=== PATIENT | male | born 1955 | race Caucasian/White ===

== ENCOUNTER 2018-11-03 22:08 | Inpatient (IN) | payer MEDICARE ==
[2018-11-03] MEDS ORDERED: Haloperidol Lactate 5 mg/mL 1mL Vial IM STA (22:11)
--- NOTE | 2018-11-03 22:17 | ED Physician Chart ---
ED Chief Complaint/HPI - Patient Information Date Seen:: 11/03/18 Time Seen:: 22:00 Chief Complaint:: Agitation History of Present Illness:: onset x 3 days of agitation, hostile and aggressive behavior; no report of trauma, H/As, SIs, S/T, neck pain, cough, C/P, SOB, Abd. Pain, A/N/V/D/C, fever , chills, or urinary s/s Allergies:: Allergies Allergy/AdvReac Type Severity Reaction Status Date / Time amoxicillin Allergy Verified 11/03/18 22:10 Historian:: Patient, EMS Review:: Nurse's Note Reviewed, Old Chart Reviewed, EMS run form Reviewed ED Review of Systems - Review of Systems General/Constitutional: No fever, No chills, No weight loss, No weakness, No diaphoresis, No edema, No loss of appetite Skin: No skin lesions, No rash, No bruising Head: No headache, No light-headedness Eyes: No loss of vision, No pain, No diplopia ENT: No earache, No nasal drainage, No sore throat, No tinnitus Neck: No neck pain, No swelling, No thyromegaly, No stiffness, No mass noted Cardio Vascular: No chest pain, No palpitations, No PND, No orthopnea, No edema Pulmonary: No SOB, No cough, No sputum, No wheezing GI: No nausea, No vomiting, No diarrhea, No pain, No melena, No hematochezia, No constipation, No hematemesis G/U: No dysuria, No frequency, No hematuria, No nacturia Musculoskeletal: No bone or joint pain, No back pain, No muscle pain Endocrine: No polyuria, No polydipsia Psychiatric: Prior psych history, Depression, Anxiety, No suicidal ideation, No homicidal ideation, No auditory hallucination, No visual hallucination Hematopoietic: No bruising, No lymphadenopathy Allergic/Immuno: No urticaria, No angioedema Neurological: No syncope, No focal symptoms, No weakness, No paresthesia, No headache, No seizure, No dizziness, Confusion, No vertigo ED Past Medical History - Past Medical History Obtainable: Yes Past Medical History: HTN, Dyslipidemia, PUD/GERD, Dementia Family History: HTN Social History: Non Smoker, No Alcohol, No Drug Use, Single, Care Facility Surgical History: None Psychiatricy History: Depression, Bipolar, Dementia Medication: Reviewed Family Medical History - Family Member Mother History Unknown: Yes ED Physical Exam - Physical Examination General/Constitutional: Awake, Well-developed, well-nourished, Alert, No distress, GCS 15, Non-toxic appearing, Ambulatory Head: Atraumatic Eyes: Lids, conjuctiva normal, PERRL, EOMI Skin: Nl inspection, No rash, No skin lesions, No ecchymosis, Well hydrated, No lymphadenopathy ENMT: External ears, nose nl, TM canals nl, Nasal exam nl, Lips, teeth, gums nl , Oropharynx nl, Tonsils nl Neck: Nontender, Full ROM w/o pain, No JVD, No nuchal rigidity, No bruit, No mass, No stridor Respiratory: Nl effort/Exclusion, Clear to Auscultation, No Wheeze/Rhonchi/Rales Cardio Vascular: RRR, No murmur, gallop, rubs, NL S1 S2, Carotid/Femoral/Distal pulses equal bilaterally GI: No tenderness/rebounding/guarding, No organomegaly, No hernia, Normal BS's, Nondistended, No mass/bruits, No McBurney tenderness Other GI comments:: no pulsatile masses : No CVA tenderness Extremities: No tenderness or effusion, Full ROM, normal strength in all extremities, No edema, Normal digits & nails Neuro/Psych: Alert/oriented, DTR's symmetric, Normal sensory exam, Normal motor strength, Judgement/insight normal, Mood normal, Normal gait, No focal deficits Other Neuro/Psych comments:: + Psychomotor Agitation; no SIs; Mood/Affect: Labile Misc: Normal back, No paraspinal tenderness ED Labs/Radiology/EKG Results - Lab Results Comments:: Reviewed - EKG Interpretations Comments:: pt refused EKG ED Septic Shock - . Is Septic Shock (SBP<90, OR Lactate>4 mmol\L) present?: No ED Reassessment (Disposition) - Reassessment Reassessment Condition:: Improved - Diagnosis Diagnosis:: Agitation; Medical Clearance; Dementia; Psychosis; Bipolar Disorder - Aftercare/Follow up Instructions Aftercare/Follow-Up Instructions:: Counseled pt regarding lab results/diagnosis & need follow up, Counseled pt & family regarding lab results/diagnosis & need follow up - Patient Disposition Discharge/Transfer:: Acute Care w/in this hosp Admitted to:: [facility] Condition at Disposition:: Stable, Improved
[2018-11-03 22:48] LABS: % BASOPHILS 0.2 % (0.0-2.0); % EOSINOPHILS 0.2 % (0.0-5.0); % LYMPHOCYTES 11.7 % (20.0-50.0); % MONOCYTES 5.2 % (2.0-10.0); % NEUTROPHILS 82.7 % (40.0-80.0); HEMATOCRIT 40.7 % (41.0-60); HEMOGLOBIN 13.3 gm/dL (12-16); LYMPHOCYTE ABSOLUTE 1.2 Th/cmm (1.5-3.0); MEAN CELL VOLUME 100.9 fl (80-99); MEAN CORPUSCULAR HEMOGLOBIN 32.9 pg (26.0-30.0); MEAN CORPUSCULAR HGB CONC 32.6 pg (28.0-36.0); MEAN PLATELET VOLUME 7.6 fl; MONOCYTE ABSOLUTE 0.5 Th/cmm (0.3-1.0); NEUTROPHILE ABSOLUTE 8.6 Th/cmm (1.8-8.0); PLATELET COUNT 200 Th/cmm (150-400); RED BLOOD COUNT 4.03 Mil/cmm (4.30-5.70); RED CELL DISTRIBUTION WIDTH 12.1 % (11.5-20.0); WHITE BLOOD COUNT 10.3 Th/cmm (4.8-10.8)
[2018-11-03] MEDS ORDERED: Haloperidol Lactate 5 mg/mL 1mL Vial ONE (22:52)
[2018-11-03 23:03] LABS: ALB/GLOB RATIO 1.7 (1.0-1.8); ALKALINE PHOSPHATASE 73 U/L (34-104); ANION GAP 16.4 (7.0-16.0); BILIRUBIN,TOTAL 0.3 mg/dL (0.3-1.0); BUN - UREA NITROGEN 24 mg/dL (7-25); CALCIUM SERUM 9.2 mg/dL (8.6-10.3); CARBON DIOXIDE 22.3 mEq/L (21.0-31.0); CHLORIDE 104 mEq/L (98-107); CHOLESTEROL 147 mg/dL (<200); CREATININE - SERUM 0.9 mg/dL (0.7-1.3); GFR AFRICAN-AMERICAN > 60.0 ml/min (>90); GFR NON AFRICAN-AMERICAN > 60.0 ml/min; GLUCOSE 127 mg/dL (70-105); HDL -HIGH DENSITY LIPOPROTEIN 55 mg/dL (23-92); POTASSIUM SERUM 3.7 mEq/L (3.5-5.1); SGOT 19 U/L (13-39); SGPT/ALT 35 U/L (7-52); SODIUM SERUM 139 mEq/L (136-145); TOTAL PROTEIN,SERUM 6.3 gm/dL (6.0-8.3); TRIGLYCERIDES 57 mg/dL (<150)
[2018-11-03 23:07] LABS: ACETAMINOPHEN < 10.0 ug/mL (10.0-30.0); SALICYLATES (ASPIRIN) < 25.0 mg/L (30.0-100.0)
[2018-11-04] MEDS ORDERED: Maalox 30 mL Cup PO PRN (00:09)
[2018-11-04 00:11] VITALS: BP 100/60
[2018-11-04] MEDS: Multivitamin w/ Minerals Tab PO SCH (08:49)
--- NOTE | 2018-11-04 15:30 | History & Physical ---
ADMIT DATE: 11/04/2018 CHIEF COMPLAINT: Agitated behavior. HISTORY OF PRESENT ILLNESS: This is a 63-year-old male with history of hypertension, dementia, hypercholesterolemia, GERD, admitted from nursing facility secondary to above complaints. The patient is a poor historian and unable to provide any meaningful history and review of system. PAST MEDICAL HISTORY: As mentioned in history of present illness. PAST SURGICAL HISTORY: Unable to obtain from the patient. ALLERGIES: AMOXICILLIN. MEDICATIONS: The patient is on Tylenol, Coreg, vitamin B12, Colace, magnesium, Namenda, and multivitamin. FAMILY HISTORY: Noncontributory. SOCIAL HISTORY: The patient is a care home patient, requiring 24-hour total care. REVIEW OF SYSTEMS: This is limited secondary to the patient's current mental state. We will try to obtain more detailed review of system at a later date by talking to family members not listed. The patient currently also try to get information from the nursing staff where the patient came from. PHYSICAL EXAMINATION: VITAL SIGNS: Blood pressure 143/88, respirations 16, pulse 101, temperature 98.3. GENERAL: Elderly male, appears chronically ill. NECK: Supple. No mass. LUNGS: Equal breath sounds with a few rhonchi. HEART: Regular rate and rhythm without appreciable murmurs. ABDOMEN: Soft, globular. EXTREMITIES: Positive excoriations. NEUROLOGIC: Limited. LABORATORY DATA: WBC 10, hemoglobin 13, hematocrit 40, which is a little bit low platelets 200. Sodium 130, potassium 3.7, BUN 24, creatinine 0.9, blood sugar 127. Albumin 4.0. ASSESSMENT: Hypertension, dementia, generalized weakness, dysphagia, hypercholesterolemia, and gastroesophageal reflux disease. PLAN: We are going to continue on current antihypertensive mediation and psychiatric medication for psychiatric issues. The patient will be placed on fall precaution. Psychiatry to manage the patient for all psych issues. JOB# [id number]
[2018-11-04] MEDS ORDERED: Magnesium Hydroxide (MOM) 30 mL UDC PO SCH (21:00)
--- NOTE | 2018-11-05 00:09 | Psychiatric Evaluation ---
DATE OF SERVICE: 11/04/2018 HISTORY OF PRESENT ILLNESS: A 63-year-old male, agitated for the past few days, hostile, aggressive behaviors. On [id number], the patient is AO to name only, mumbling, very difficult to understand what he is saying. Reported history of depression, possibly bipolar. Also, dementia as listed. The patient gets up and wanders around the room. While I am talking to him, food on him. Mumbling something that I cannot understand. PAST PSYCH HISTORY: Noted including dementia. SOCIAL HISTORY: The patient's name is as listed in [facility]. It is unclear if he has any family or social support, but there is a daughter listed on the face sheet. It is unclear if he uses any drugs, alcohol, or tobacco. Medications were noted. Under medical, please see full H and P. MENTAL STATUS EXAMINATION: Stated age, awake, alert, AO to name only, not telling me where he is or what is going on or the year or the month. Mood, unable to assess. Affect flat. Thought processes seem confused. No suicidal gestures. No homicidal gestures. Unclear psychotic symptoms, seem to be mumbling to self. Poor insight, poor impulse control. PROVISIONAL DIAGNOSES: Dementia, rule out bipolar, mood unspecified. Under medical, please see full H and P. ESTIMATED LENGTH OF STAY: 5-6 days. ASSESSMENT: A 63-year-old male with history of dementia, confusion, coming in due to agitation, yelling, screaming, combative behaviors, unable to be redirected, poor historian. PLAN: We will restart medications. Adjust dosages of medications. Treatment plan includes group as well as milieu therapy. We will attempt to increase collateral. Poor orientation. CONDITIONS FOR DISCHARGE: Improved mood, improved affect, better control of any psychotic symptoms, aggressive symptoms. JOB# [id number]
[2018-11-05] MEDS: Multivitamin w/ Minerals Tab PO SCH (08:53)
--- NOTE | 2018-11-05 12:55 | Internal Medicine Prog Note ---
Internal Medicine Subjective - Subjective Patient seen and examined:: with staff, chart reviewed Patient is:: awake, verbal, interactive, in bed, confused, stares blankly Per staff patient has:: no adverse event, no episodes of fall, poor appetite, tolerating meds Internal Medicine Objective - Results Result Diagrams: 11/03/18 22:25 11/03/18 22:25 Recent Labs: Laboratory Last Values WBC 10.3 Th/cmm (4.8-10.8) 11/03/18 22:25 RBC 4.03 Mil/cmm (4.30-5.70) L 11/03/18 22:25 Hgb 13.3 gm/dL (12-16) 11/03/18 22:25 Hct 40.7 % (41.0-60) L 11/03/18 22:25 MCV 100.9 fl (80-99) H 11/03/18 22:25 MCH 32.9 pg (26.0-30.0) H 11/03/18 22:25 MCHC Differential 32.6 pg (28.0-36.0) 11/03/18 22:25 RDW 12.1 % (11.5-20.0) 11/03/18 22:25 Plt Count 200 Th/cmm (150-400) 11/03/18 22:25 MPV 7.6 fl 11/03/18 22:25 Neutrophils % 82.7 % (40.0-80.0) H 11/03/18 22:25 Lymphocytes % 11.7 % (20.0-50.0) L 11/03/18 22:25 Monocytes % 5.2 % (2.0-10.0) 11/03/18 22:25 Eosinophils % 0.2 % (0.0-5.0) 11/03/18 22:25 Basophils % 0.2 % (0.0-2.0) 11/03/18 22:25 Sodium 139 mEq/L (136-145) 11/03/18 22:25 Potassium 3.7 mEq/L (3.5-5.1) 11/03/18 22:25 Chloride 104 mEq/L (98-107) 11/03/18 22:25 Carbon Dioxide 22.3 mEq/L (21.0-31.0) 11/03/18 22:25 Anion Gap 16.4 (7.0-16.0) H 11/03/18 22:25 BUN 24 mg/dL (7-25) 11/03/18 22:25 Creatinine 0.9 mg/dL (0.7-1.3) 11/03/18 22:25 Est GFR ( Amer) > 60.0 ml/min (>90) 11/03/18 22:25 Est GFR (Non-Af Amer) > 60.0 ml/min 11/03/18 22:25 BUN/Creatinine Ratio 26.7 11/03/18 22:25 Glucose 127 mg/dL (70-105) H 11/03/18 22:25 Calcium 9.2 mg/dL (8.6-10.3) 11/03/18 22:25 Total Bilirubin 0.3 mg/dL (0.3-1.0) 11/03/18 22:25 AST 19 U/L (13-39) 11/03/18 22:25 ALT 35 U/L (7-52) 11/03/18 22:25 Alkaline Phosphatase 73 U/L (34-104) 11/03/18 22:25 Troponin I < 0.01 ng/mL (0.01-0.05) L 11/03/18 22:25 Total Protein 6.3 gm/dL (6.0-8.3) 11/03/18 22:25 Albumin 4.0 gm/dL (4.2-5.5) L 11/03/18 22:25 Globulin 2.3 gm/dL 11/03/18 22:25 Albumin/Globulin Ratio 1.7 (1.0-1.8) 11/03/18 22:25 Triglycerides 57 mg/dL (<150) 11/03/18 22:25 Cholesterol 147 mg/dL (<200) 11/03/18 22:25 LDL Cholesterol Direct 88 mg/dL (75-193) 11/03/18 22:25 HDL Cholesterol 55 mg/dL (23-92) 11/03/18 22:25 TSH 1.14 uIU/ml (0.34-5.60) 11/03/18 22:25 Salicylates < 25.0 mg/L (30.0-100.0) L 11/03/18 22:25 Acetaminophen < 10.0 ug/mL (10.0-30.0) L 11/03/18 22:25 Ethyl Alcohol < 10 mg/dL (0-10) 11/03/18 22:25 RPR NONREACTIVE (NONREACTIVE) 11/03/18 22:25 - Physical Exam Vitals and I&O: Vital Signs Temp 98.3 F 11/05/18 06:17 Pulse 92 11/05/18 08:53 Resp 18 11/05/18 06:17 BP 147/104 11/05/18 08:53 Pulse Ox 96 11/05/18 06:17 Intake & Output 11/04/18 11/05/18 11/05/18 18:59 06:59 18:59 Intake Total 240 Balance 240 Intake: Oral 240 Other: # Voids 2 2 # Bowel Movements 0 0 Active Medications: Current Medications Acetaminophen (Tylenol) 650 mg PO Q6HR PRN PRN Reason: Pain or Fever >101 Stop: 01/03/19 00:18 Al Hydrox/Mg Hydrox/Simethicone (Maalox) 30 ml PO Q4HR PRN PRN Reason: GI DISTRESS Stop: 01/03/19 00:08 Carvedilol (Coreg) 6.25 mg PO BID [facility] Stop: 01/03/19 08:59 Last Admin: 11/05/18 08:53 Dose: 6.25 mg Cyanocobalamin (Vitamin B12) 1,000 mcg PO DAILY [facility] Stop: 01/03/19 08:59 Last Admin: 11/05/18 08:53 Dose: 1,000 mcg Docusate Sodium (Colace) 100 mg PO BID [facility] Stop: 01/03/19 08:59 Last Admin: 11/05/18 08:53 Dose: 100 mg Donepezil HCl (Aricept) 5 mg PO HS [facility] Stop: 01/03/19 20:59 Last Admin: 11/04/18 21:02 Dose: 5 mg Lorazepam (Ativan) 0.5 mg PO Q4HR PRN; Protocol PRN Reason: Anxiety Stop: 12/04/18 00:08 Last Admin: 11/05/18 11:27 Dose: 0.5 mg Memantine (Namenda) 5 mg PO DAILY [facility] Stop: 01/03/19 08:59 Last Admin: 11/05/18 08:52 Dose: 5 mg Zolpidem Tartrate (Ambien) 5 mg PO HS PRN PRN Reason: Insomnia Stop: 01/03/19 00:08 Last Admin: 11/04/18 21:02 Dose: 5 mg General: weak, demented HEENT: NC/AT, PERRLA, EOMI, thinning hair, poor dentition Neck: Supple, No JVD Lungs: CTAB Cardiovascular: RRR, Normal S1, Normal S2, with murmur Abdomen: soft, non-tender, globular, positive bowel sound Extremities: excoriation, contracture Neurological: no change, disorganized Internal Medicine Assmt/Plan - Assessment Assessment: ASSESSMENT: Hypertension, dementia, generalized weakness, dysphagia, hypercholesterolemia, and gastroesophageal reflux disease. - Plan Plan: PLAN: We are going to continue on current antihypertensive mediation and psychiatric medication for psychiatric issues. The patient will be placed on fall precaution. Psychiatry to manage the patient for all psych issues.
--- NOTE | 2018-11-06 01:12 | Progress Notes ---
DATE: 11/05/[address] Elam. Case was discussed with staff of the patient, reviewed records. This is a 63-year-old male who was admitted on 11/03/2018 because of agitation and aggressive behavior. The patient is confused, oriented to name only, mumbling, very difficult to understand, talking to himself, with history of depression, bipolar disorder, and also dementia. The patient continues to be unpredictable, impulsive, talking to himself, unable to participate in meaningful conversation or make safe plan for self-care. Continues to have poor insight. He is on Namenda 5 mg daily, Aricept 5 mg at bedtime with no side effects, no sedation or nausea, and no extrapyramidal symptoms. We will continue to work with the patient in group therapy, milieu therapy, and adjust the medications as needed. JOB# [id number]
[2018-11-06] MEDS: Multivitamin w/ Minerals Tab PO SCH (08:40)
--- NOTE | 2018-11-06 11:09 | Internal Medicine Prog Note ---
Internal Medicine Subjective - Subjective Service Date: 11/06/18 Patient is:: awake, verbal, interactive, in bed, confused, stares blankly Per staff patient has:: no adverse event, no episodes of fall, poor appetite, tolerating meds Internal Medicine Objective - Results Result Diagrams: 11/03/18 22:25 11/03/18 22:25 Recent Labs: Laboratory Last Values WBC 10.3 Th/cmm (4.8-10.8) 11/03/18 22:25 RBC 4.03 Mil/cmm (4.30-5.70) L 11/03/18 22:25 Hgb 13.3 gm/dL (12-16) 11/03/18 22:25 Hct 40.7 % (41.0-60) L 11/03/18 22:25 MCV 100.9 fl (80-99) H 11/03/18 22:25 MCH 32.9 pg (26.0-30.0) H 11/03/18 22:25 MCHC Differential 32.6 pg (28.0-36.0) 11/03/18 22:25 RDW 12.1 % (11.5-20.0) 11/03/18 22:25 Plt Count 200 Th/cmm (150-400) 11/03/18 22:25 MPV 7.6 fl 11/03/18 22:25 Neutrophils % 82.7 % (40.0-80.0) H 11/03/18 22:25 Lymphocytes % 11.7 % (20.0-50.0) L 11/03/18 22:25 Monocytes % 5.2 % (2.0-10.0) 11/03/18 22:25 Eosinophils % 0.2 % (0.0-5.0) 11/03/18 22:25 Basophils % 0.2 % (0.0-2.0) 11/03/18 22:25 Sodium 139 mEq/L (136-145) 11/03/18 22:25 Potassium 3.7 mEq/L (3.5-5.1) 11/03/18 22:25 Chloride 104 mEq/L (98-107) 11/03/18 22:25 Carbon Dioxide 22.3 mEq/L (21.0-31.0) 11/03/18 22:25 Anion Gap 16.4 (7.0-16.0) H 11/03/18 22:25 BUN 24 mg/dL (7-25) 11/03/18 22:25 Creatinine 0.9 mg/dL (0.7-1.3) 11/03/18 22:25 Est GFR ( Amer) > 60.0 ml/min (>90) 11/03/18 22:25 Est GFR (Non-Af Amer) > 60.0 ml/min 11/03/18 22:25 BUN/Creatinine Ratio 26.7 11/03/18 22:25 Glucose 127 mg/dL (70-105) H 11/03/18 22:25 Calcium 9.2 mg/dL (8.6-10.3) 11/03/18 22:25 Total Bilirubin 0.3 mg/dL (0.3-1.0) 11/03/18 22:25 AST 19 U/L (13-39) 11/03/18 22:25 ALT 35 U/L (7-52) 11/03/18 22:25 Alkaline Phosphatase 73 U/L (34-104) 11/03/18 22:25 Troponin I < 0.01 ng/mL (0.01-0.05) L 11/03/18 22:25 Total Protein 6.3 gm/dL (6.0-8.3) 11/03/18 22:25 Albumin 4.0 gm/dL (4.2-5.5) L 11/03/18 22:25 Globulin 2.3 gm/dL 11/03/18 22:25 Albumin/Globulin Ratio 1.7 (1.0-1.8) 11/03/18 22:25 Triglycerides 57 mg/dL (<150) 11/03/18 22:25 Cholesterol 147 mg/dL (<200) 11/03/18 22:25 LDL Cholesterol Direct 88 mg/dL (75-193) 11/03/18 22:25 HDL Cholesterol 55 mg/dL (23-92) 11/03/18 22:25 TSH 1.14 uIU/ml (0.34-5.60) 11/03/18 22:25 Salicylates < 25.0 mg/L (30.0-100.0) L 11/03/18 22:25 Acetaminophen < 10.0 ug/mL (10.0-30.0) L 11/03/18 22:25 Ethyl Alcohol < 10 mg/dL (0-10) 11/03/18 22:25 RPR NONREACTIVE (NONREACTIVE) 11/03/18 22:25 - Physical Exam Vitals and I&O: Vital Signs Temp 98.0 F 11/06/18 05:55 Pulse 85 11/06/18 08:41 Resp 18 11/06/18 05:55 BP 145/88 11/06/18 08:41 Pulse Ox 98 11/06/18 05:55 Intake & Output 11/05/18 11/06/18 11/06/18 18:59 06:59 18:59 Intake Total 1200 Balance 1200 Intake: Oral 1200 Other: # Bowel Movements 1 Active Medications: Current Medications Acetaminophen (Tylenol) 650 mg PO Q6HR PRN PRN Reason: Pain or Fever >101 Stop: 01/03/19 00:18 Al Hydrox/Mg Hydrox/Simethicone (Maalox) 30 ml PO Q4HR PRN PRN Reason: GI DISTRESS Stop: 01/03/19 00:08 Carvedilol (Coreg) 6.25 mg PO BID [facility] Stop: 01/03/19 08:59 Last Admin: 11/06/18 08:41 Dose: 6.25 mg Cyanocobalamin (Vitamin B12) 1,000 mcg PO DAILY [facility] Stop: 01/03/19 08:59 Last Admin: 11/06/18 08:40 Dose: 1,000 mcg Docusate Sodium (Colace) 100 mg PO BID [facility] Stop: 01/03/19 08:59 Last Admin: 11/06/18 08:40 Dose: 100 mg Donepezil HCl (Aricept) 10 mg PO HS [facility] Stop: 01/05/19 20:59 Lorazepam (Ativan) 0.5 mg PO Q4HR PRN; Protocol PRN Reason: Anxiety Stop: 12/04/18 00:08 Last Admin: 11/06/18 08:40 Dose: 0.5 mg Memantine (Namenda) 5 mg PO DAILY [facility] Stop: 01/03/19 08:59 Last Admin: 11/06/18 08:40 Dose: 5 mg Zolpidem Tartrate (Ambien) 5 mg PO HS PRN PRN Reason: Insomnia Stop: 01/03/19 00:08 Last Admin: 11/05/18 20:33 Dose: 5 mg General: weak, demented HEENT: NC/AT, PERRLA, EOMI, thinning hair, poor dentition Neck: Supple, No JVD Lungs: CTAB Cardiovascular: RRR, Normal S1, Normal S2, with murmur Abdomen: soft, non-tender, globular, positive bowel sound Extremities: excoriation, contracture Neurological: no change, disorganized Internal Medicine Assmt/Plan - Assessment Assessment: Hypertension, dementia, generalized weakness, dysphagia, hypercholesterolemia, and gastroesophageal reflux disease. . - Plan Plan: PLAN: We are going to continue on current antihypertensive mediation and psychiatric medication for psychiatric issues. The patient will be placed on fall precaution. Psychiatry to manage the patient for all psych issues
[2018-11-07] MEDS: Multivitamin w/ Minerals Tab PO SCH (10:49)
--- NOTE | 2018-11-07 12:37 | Internal Medicine Prog Note ---
Internal Medicine Subjective - Subjective Service Date: 11/07/18 Patient is:: awake, verbal, interactive, in bed, confused, stares blankly Per staff patient has:: no adverse event, no episodes of fall, poor appetite, tolerating meds Internal Medicine Objective - Results Result Diagrams: 11/03/18 22:25 11/03/18 22:25 Recent Labs: Laboratory Last Values WBC 10.3 Th/cmm (4.8-10.8) 11/03/18 22:25 RBC 4.03 Mil/cmm (4.30-5.70) L 11/03/18 22:25 Hgb 13.3 gm/dL (12-16) 11/03/18 22:25 Hct 40.7 % (41.0-60) L 11/03/18 22:25 MCV 100.9 fl (80-99) H 11/03/18 22:25 MCH 32.9 pg (26.0-30.0) H 11/03/18 22:25 MCHC Differential 32.6 pg (28.0-36.0) 11/03/18 22:25 RDW 12.1 % (11.5-20.0) 11/03/18 22:25 Plt Count 200 Th/cmm (150-400) 11/03/18 22:25 MPV 7.6 fl 11/03/18 22:25 Neutrophils % 82.7 % (40.0-80.0) H 11/03/18 22:25 Lymphocytes % 11.7 % (20.0-50.0) L 11/03/18 22:25 Monocytes % 5.2 % (2.0-10.0) 11/03/18 22:25 Eosinophils % 0.2 % (0.0-5.0) 11/03/18 22:25 Basophils % 0.2 % (0.0-2.0) 11/03/18 22:25 Sodium 139 mEq/L (136-145) 11/03/18 22:25 Potassium 3.7 mEq/L (3.5-5.1) 11/03/18 22:25 Chloride 104 mEq/L (98-107) 11/03/18 22:25 Carbon Dioxide 22.3 mEq/L (21.0-31.0) 11/03/18 22:25 Anion Gap 16.4 (7.0-16.0) H 11/03/18 22:25 BUN 24 mg/dL (7-25) 11/03/18 22:25 Creatinine 0.9 mg/dL (0.7-1.3) 11/03/18 22:25 Est GFR ( Amer) > 60.0 ml/min (>90) 11/03/18 22:25 Est GFR (Non-Af Amer) > 60.0 ml/min 11/03/18 22:25 BUN/Creatinine Ratio 26.7 11/03/18 22:25 Glucose 127 mg/dL (70-105) H 11/03/18 22:25 Calcium 9.2 mg/dL (8.6-10.3) 11/03/18 22:25 Total Bilirubin 0.3 mg/dL (0.3-1.0) 11/03/18 22:25 AST 19 U/L (13-39) 11/03/18 22:25 ALT 35 U/L (7-52) 11/03/18 22:25 Alkaline Phosphatase 73 U/L (34-104) 11/03/18 22:25 Troponin I < 0.01 ng/mL (0.01-0.05) L 11/03/18 22:25 Total Protein 6.3 gm/dL (6.0-8.3) 11/03/18 22:25 Albumin 4.0 gm/dL (4.2-5.5) L 11/03/18 22:25 Globulin 2.3 gm/dL 11/03/18 22:25 Albumin/Globulin Ratio 1.7 (1.0-1.8) 11/03/18 22:25 Triglycerides 57 mg/dL (<150) 11/03/18 22:25 Cholesterol 147 mg/dL (<200) 11/03/18 22:25 LDL Cholesterol Direct 88 mg/dL (75-193) 11/03/18 22:25 HDL Cholesterol 55 mg/dL (23-92) 11/03/18 22:25 TSH 1.14 uIU/ml (0.34-5.60) 11/03/18 22:25 Salicylates < 25.0 mg/L (30.0-100.0) L 11/03/18 22:25 Acetaminophen < 10.0 ug/mL (10.0-30.0) L 11/03/18 22:25 Ethyl Alcohol < 10 mg/dL (0-10) 11/03/18 22:25 RPR NONREACTIVE (NONREACTIVE) 11/03/18 22:25 - Physical Exam Vitals and I&O: Vital Signs Temp 97.6 F 11/07/18 06:33 Pulse 69 11/07/18 10:47 Resp 18 11/07/18 06:33 BP 124/69 11/07/18 10:47 Pulse Ox 96 11/07/18 06:33 Intake & Output 11/06/18 11/07/18 11/07/18 18:59 06:59 18:59 Intake Total 1200 480 Balance 1200 480 Intake: Oral 1200 480 Other: # Voids 2 # Bowel Movements 2 0 Active Medications: Current Medications Acetaminophen (Tylenol) 650 mg PO Q6HR PRN PRN Reason: Pain or Fever >101 Stop: 01/03/19 00:18 Al Hydrox/Mg Hydrox/Simethicone (Maalox) 30 ml PO Q4HR PRN PRN Reason: GI DISTRESS Stop: 01/03/19 00:08 Carvedilol (Coreg) 6.25 mg PO BID [facility] Stop: 01/03/19 08:59 Last Admin: 11/07/18 10:47 Dose: 6.25 mg Cyanocobalamin (Vitamin B12) 1,000 mcg PO DAILY [facility] Stop: 01/03/19 08:59 Last Admin: 11/07/18 10:49 Dose: Not Given Docusate Sodium (Colace) 100 mg PO BID [facility] Stop: 01/03/19 08:59 Last Admin: 11/07/18 10:48 Dose: Not Given Donepezil HCl (Aricept) 10 mg PO HS [facility] Stop: 01/05/19 20:59 Last Admin: 11/06/18 21:06 Dose: 10 mg Lorazepam (Ativan) 0.5 mg PO Q4HR PRN; Protocol PRN Reason: Anxiety Stop: 12/04/18 00:08 Last Admin: 11/07/18 10:49 Dose: 0.5 mg Memantine (Namenda) 5 mg PO DAILY [facility] Stop: 01/03/19 08:59 Last Admin: 11/07/18 10:48 Dose: 5 mg Zolpidem Tartrate (Ambien) 5 mg PO HS PRN PRN Reason: Insomnia Stop: 01/03/19 00:08 Last Admin: 11/06/18 21:07 Dose: 5 mg General: weak, demented HEENT: NC/AT, PERRLA, EOMI, thinning hair, poor dentition Neck: Supple, No JVD Lungs: CTAB Cardiovascular: RRR, Normal S1, Normal S2, with murmur Abdomen: soft, non-tender, globular, positive bowel sound Extremities: excoriation, contracture Neurological: no change, disorganized Internal Medicine Assmt/Plan - Assessment Assessment: Hypertension, dementia, generalized weakness, dysphagia, hypercholesterolemia, and gastroesophageal reflux disease. . - Plan Plan: PLAN: We are going to continue on current antihypertensive mediation and psychiatric medication for psychiatric issues. The patient will be placed on fall precaution. Psychiatry to manage the patient for all psych issues Nutritional Asmnt/Malnutr-PDOC - Dietary Evaluation Malnutrition Findings (Please click <Entered> for more info): Nutritional Asmnt/Malnutrition Start: 11/06/18 11: 20 Text: Status: Complete Freq: Protocol: Document 11/06/18 11:20 [email or web address] (Rec: 11/06/18 11:27 MMTEODORA [email or web address]- [email or web address]) Nutritional Asmnt/Malnutrition Patient General Information Nutritional Screening Moderate Risk Diagnosis Psychosis Pertinent Medical Hx/Surgical Hx hypertension, dementia, hypercholesterolemia, GERD Subjective Information Patient was admitted from nursing facility. In ariadna chair at time of visit. Tolerating current diet order without difficulty. Current Diet Order/ Nutrition Support Mechanical soft chopped, x2 portion entree with food in separate bowls Patient / S.O Not Indicated Pertinent Medications maalox, Vitamin B12, colace, Pertinent Labs WNL Nutritional Hx/Data Height 5 ft 6 in Height (Calculated Centimeters) 167.6 Current Weight (lbs) 181 lb Weight (Calculated Kilograms) 82.1 Weight (Calculated Grams) 84646.2 [place] Body Weight 142 % [place] Body Weight 127 Body Mass Index (BMI) 29.2 Recent Weight Change No Weight Status Overweight GI Symptoms GI Symptoms None Last BM 2/ c 2 Difficult in: None Food Allergies No Cultural/Ethnic/Gnosticist Belief none indicated Usual diet at home unknown Skin Integrity/Comment: [place] 20, intact Current %PO Good (75-100%) Estimated Nutritional Goals BEE in Kcals: Using Current wt Calories/Kcals/Kg 22-27 kcal/kg using CBW 82.2kg Kcals Calculated ~2960-1744 kcal/day Protein: Using Current wt Protein g/k.8-1 gm/kg Protein Calculated ~65-80 gm/day Fluid: ml ~9847-5731 ml/day Nutritional Problem 1. Problem Problem No nutrition diagnosis at this time Intervention/Recommendation Comments Continue current diet order as tolerated by patient. Expected Outcomes/Goals Expected Outcomes/Goals Oral diet >75% of meals, weight stable or trend toward IBW, nutrition related labs WNL.
--- NOTE | 2018-11-07 19:08 | Progress Notes ---
DATE: SUBJECTIVE: Chart reviewed and the patient interviewed. Also discussed the patient's condition with the staff and reviewed records and labs. The patient is still confused and unable to follow directions. The patient also still mumbles and talking to himself and is nonsensical. The patient also is having lack of energy and lack of motivations and also need assistance with his ADLs and with his eating and considered to be gravely disabled. On the other hand, the patient is calm with no major behavioral issues. ASSESSMENT: The patient is still depressed and still has poor memory and needs lots of help on directions. TREATMENT PLAN: We will continue Namenda 5 mg every day, but will increase Aricept to 10 mg every morning and will continue to follow up closely. [facility]# [id number]
--- NOTE | 2018-11-07 21:58 | Progress Notes ---
DATE: 11/07/2018 SUBJECTIVE: Chart reviewed and the patient interviewed. Also discussed the patient's condition with the staff and reviewed records and labs. The patient is still confused and is still unable to follow directions. The patient also is still nonsensical and mumbles to himself. The patient also still needs redirections. Otherwise, the patient is showing less behavioral issues and is slightly easier to redirect him. ASSESSMENT: The patient is still forgetful and confused. TREATMENT PLAN: Continue to monitor behavior and continue to work on his adjusting psychotropic medications and followup. JOB# [id number]
[2018-11-08] MEDS: Multivitamin w/ Minerals Tab PO SCH (08:43)
--- NOTE | 2018-11-08 12:15 | Internal Medicine Prog Note ---
Internal Medicine Subjective - Subjective Patient seen and examined:: with staff, chart reviewed Patient is:: awake, verbal, interactive, in bed, confused, stares blankly Per staff patient has:: no adverse event, no episodes of fall, poor appetite, tolerating meds Internal Medicine Objective - Results Result Diagrams: 11/03/18 22:25 11/03/18 22:25 Recent Labs: Laboratory Last Values WBC 10.3 Th/cmm (4.8-10.8) 11/03/18 22:25 RBC 4.03 Mil/cmm (4.30-5.70) L 11/03/18 22:25 Hgb 13.3 gm/dL (12-16) 11/03/18 22:25 Hct 40.7 % (41.0-60) L 11/03/18 22:25 MCV 100.9 fl (80-99) H 11/03/18 22:25 MCH 32.9 pg (26.0-30.0) H 11/03/18 22:25 MCHC Differential 32.6 pg (28.0-36.0) 11/03/18 22:25 RDW 12.1 % (11.5-20.0) 11/03/18 22:25 Plt Count 200 Th/cmm (150-400) 11/03/18 22:25 MPV 7.6 fl 11/03/18 22:25 Neutrophils % 82.7 % (40.0-80.0) H 11/03/18 22:25 Lymphocytes % 11.7 % (20.0-50.0) L 11/03/18 22:25 Monocytes % 5.2 % (2.0-10.0) 11/03/18 22:25 Eosinophils % 0.2 % (0.0-5.0) 11/03/18 22:25 Basophils % 0.2 % (0.0-2.0) 11/03/18 22:25 Sodium 139 mEq/L (136-145) 11/03/18 22:25 Potassium 3.7 mEq/L (3.5-5.1) 11/03/18 22:25 Chloride 104 mEq/L (98-107) 11/03/18 22:25 Carbon Dioxide 22.3 mEq/L (21.0-31.0) 11/03/18 22:25 Anion Gap 16.4 (7.0-16.0) H 11/03/18 22:25 BUN 24 mg/dL (7-25) 11/03/18 22:25 Creatinine 0.9 mg/dL (0.7-1.3) 11/03/18 22:25 Est GFR ( Amer) > 60.0 ml/min (>90) 11/03/18 22:25 Est GFR (Non-Af Amer) > 60.0 ml/min 11/03/18 22:25 BUN/Creatinine Ratio 26.7 11/03/18 22:25 Glucose 127 mg/dL (70-105) H 11/03/18 22:25 Calcium 9.2 mg/dL (8.6-10.3) 11/03/18 22:25 Total Bilirubin 0.3 mg/dL (0.3-1.0) 11/03/18 22:25 AST 19 U/L (13-39) 11/03/18 22:25 ALT 35 U/L (7-52) 11/03/18 22:25 Alkaline Phosphatase 73 U/L (34-104) 11/03/18 22:25 Troponin I < 0.01 ng/mL (0.01-0.05) L 11/03/18 22:25 Total Protein 6.3 gm/dL (6.0-8.3) 11/03/18 22:25 Albumin 4.0 gm/dL (4.2-5.5) L 11/03/18 22:25 Globulin 2.3 gm/dL 11/03/18 22:25 Albumin/Globulin Ratio 1.7 (1.0-1.8) 11/03/18 22:25 Triglycerides 57 mg/dL (<150) 11/03/18 22:25 Cholesterol 147 mg/dL (<200) 11/03/18 22:25 LDL Cholesterol Direct 88 mg/dL (75-193) 11/03/18 22:25 HDL Cholesterol 55 mg/dL (23-92) 11/03/18 22:25 TSH 1.14 uIU/ml (0.34-5.60) 11/03/18 22:25 Salicylates < 25.0 mg/L (30.0-100.0) L 11/03/18 22:25 Acetaminophen < 10.0 ug/mL (10.0-30.0) L 11/03/18 22:25 Ethyl Alcohol < 10 mg/dL (0-10) 11/03/18 22:25 RPR NONREACTIVE (NONREACTIVE) 11/03/18 22:25 - Physical Exam Vitals and I&O: Vital Signs Temp 97.5 F 11/08/18 06:28 Pulse 65 11/08/18 06:28 Resp 18 11/08/18 06:28 BP 105/50 11/08/18 08:41 Pulse Ox 97 11/08/18 06:28 Intake & Output 11/07/18 11/08/18 11/08/18 18:59 06:59 18:59 Intake Total 500 500 500 Balance 500 500 500 Intake: Oral 500 500 500 Other: # Voids 1 1 Active Medications: Current Medications Acetaminophen (Tylenol) 650 mg PO Q6HR PRN PRN Reason: Pain or Fever >101 Stop: 01/03/19 00:18 Al Hydrox/Mg Hydrox/Simethicone (Maalox) 30 ml PO Q4HR PRN PRN Reason: GI DISTRESS Stop: 01/03/19 00:08 Carvedilol (Coreg) 6.25 mg PO BID [facility] Stop: 01/03/19 08:59 Last Admin: 11/08/18 08:41 Dose: Not Given Cyanocobalamin (Vitamin B12) 1,000 mcg PO DAILY HENNY Stop: 01/03/19 08:59 Last Admin: 11/08/18 08:43 Dose: 1,000 mcg Docusate Sodium (Colace) 100 mg PO BID HENNY Stop: 01/03/19 08:59 Last Admin: 11/08/18 08:43 Dose: 100 mg Donepezil HCl (Aricept) 10 mg PO HS [facility]ENNY Stop: 01/05/19 20:59 Last Admin: 11/07/18 20:46 Dose: 10 mg Lorazepam (Ativan) 0.5 mg PO Q4HR PRN; Protocol PRN Reason: Anxiety Stop: 12/04/18 00:08 Last Admin: 11/07/18 14:13 Dose: 0.5 mg Memantine (Namenda) 5 mg PO DAILY [facility]ENNY Stop: 01/03/19 08:59 Last Admin: 11/08/18 08:43 Dose: 5 mg Zolpidem Tartrate (Ambien) 5 mg PO HS PRN PRN Reason: Insomnia Stop: 01/03/19 00:08 Last Admin: 11/07/18 22:07 Dose: 5 mg General: weak, demented HEENT: NC/AT, PERRLA, EOMI, thinning hair, poor dentition Neck: Supple, No JVD Lungs: CTAB Cardiovascular: RRR, Normal S1, Normal S2, with murmur Abdomen: soft, non-tender, globular, positive bowel sound Extremities: excoriation, contracture Neurological: no change, disorganized Internal Medicine Assmt/Plan - Assessment Assessment: ASSESSMENT: Hypertension, dementia, generalized weakness, dysphagia, hypercholesterolemia, and gastroesophageal reflux disease. - Plan Plan: PLAN: We are going to continue on current antihypertensive mediation and psychiatric medication for psychiatric issues. The patient will be placed on fall precaution. Psychiatry to manage the patient for all psych issues. Nutritional Asmnt/Malnutr-PDOC - Dietary Evaluation Malnutrition Findings (Please click <Entered> for more info): Nutritional Asmnt/Malnutrition Start: 11/06/18 11: 20 Text: Status: Complete Freq: Protocol: Document 11/06/18 11:20 [email or web address] (Rec: 11/06/18 11:27 MMULMARK DOHERTY- [email or web address]) Nutritional Asmnt/Malnutrition Patient General Information Nutritional Screening Moderate Risk Diagnosis Psychosis Pertinent Medical Hx/Surgical Hx hypertension, dementia, hypercholesterolemia, GERD Subjective Information Patient was admitted from nursing facility. In ariadna chair at time of visit. Tolerating current diet order without difficulty. Current Diet Order/ Nutrition Support Mechanical soft chopped, x2 portion entree with food in separate bowls Patient / S.O Not Indicated Pertinent Medications maalox, Vitamin B12, colace, Pertinent Labs WNL Nutritional Hx/Data Height 1.68 m Height (Calculated Centimeters) 167.6 Current Weight (lbs) 82.1 kg Weight (Calculated Kilograms) 82.1 Weight (Calculated Grams) 19489.2 [place] Body Weight 142 % [place] Body Weight 127 Body Mass Index (BMI) 29.2 Recent Weight Change No Weight Status Overweight GI Symptoms GI Symptoms None Last BM 2/ c 2 Difficult in: None Food Allergies No Cultural/Ethnic/Sikh Belief none indicated Usual diet at home unknown Skin Integrity/Comment: [place] 20, intact Current %PO Good (75-100%) Estimated Nutritional Goals BEE in Kcals: Using Current wt Calories/Kcals/Kg 22-27 kcal/kg using CBW 82.2kg Kcals Calculated ~9119-3619 kcal/day Protein: Using Current wt Protein g/k.8-1 gm/kg Protein Calculated ~65-80 gm/day Fluid: ml ~7886-3504 ml/day Nutritional Problem 1. Problem Problem No nutrition diagnosis at this time Intervention/Recommendation Comments Continue current diet order as tolerated by patient. Expected Outcomes/Goals Expected Outcomes/Goals Oral diet >75% of meals, weight stable or trend toward IBW, nutrition related labs WNL.
[2018-11-09] MEDS: Multivitamin w/ Minerals Tab PO SCH (08:49)
--- NOTE | 2018-11-09 12:16 | Internal Medicine Prog Note ---
Internal Medicine Subjective - Subjective Patient seen and examined:: with staff, chart reviewed Patient is:: awake, verbal, interactive, in bed, confused, stares blankly Per staff patient has:: no adverse event, no episodes of fall, poor appetite, tolerating meds Internal Medicine Objective - Results Result Diagrams: 11/03/18 22:25 11/03/18 22:25 Recent Labs: Laboratory Last Values WBC 10.3 Th/cmm (4.8-10.8) 11/03/18 22:25 RBC 4.03 Mil/cmm (4.30-5.70) L 11/03/18 22:25 Hgb 13.3 gm/dL (12-16) 11/03/18 22:25 Hct 40.7 % (41.0-60) L 11/03/18 22:25 MCV 100.9 fl (80-99) H 11/03/18 22:25 MCH 32.9 pg (26.0-30.0) H 11/03/18 22:25 MCHC Differential 32.6 pg (28.0-36.0) 11/03/18 22:25 RDW 12.1 % (11.5-20.0) 11/03/18 22:25 Plt Count 200 Th/cmm (150-400) 11/03/18 22:25 MPV 7.6 fl 11/03/18 22:25 Neutrophils % 82.7 % (40.0-80.0) H 11/03/18 22:25 Lymphocytes % 11.7 % (20.0-50.0) L 11/03/18 22:25 Monocytes % 5.2 % (2.0-10.0) 11/03/18 22:25 Eosinophils % 0.2 % (0.0-5.0) 11/03/18 22:25 Basophils % 0.2 % (0.0-2.0) 11/03/18 22:25 Sodium 139 mEq/L (136-145) 11/03/18 22:25 Potassium 3.7 mEq/L (3.5-5.1) 11/03/18 22:25 Chloride 104 mEq/L (98-107) 11/03/18 22:25 Carbon Dioxide 22.3 mEq/L (21.0-31.0) 11/03/18 22:25 Anion Gap 16.4 (7.0-16.0) H 11/03/18 22:25 BUN 24 mg/dL (7-25) 11/03/18 22:25 Creatinine 0.9 mg/dL (0.7-1.3) 11/03/18 22:25 Est GFR ( Amer) > 60.0 ml/min (>90) 11/03/18 22:25 Est GFR (Non-Af Amer) > 60.0 ml/min 11/03/18 22:25 BUN/Creatinine Ratio 26.7 11/03/18 22:25 Glucose 127 mg/dL (70-105) H 11/03/18 22:25 Calcium 9.2 mg/dL (8.6-10.3) 11/03/18 22:25 Total Bilirubin 0.3 mg/dL (0.3-1.0) 11/03/18 22:25 AST 19 U/L (13-39) 11/03/18 22:25 ALT 35 U/L (7-52) 11/03/18 22:25 Alkaline Phosphatase 73 U/L (34-104) 11/03/18 22:25 Troponin I < 0.01 ng/mL (0.01-0.05) L 11/03/18 22:25 Total Protein 6.3 gm/dL (6.0-8.3) 11/03/18 22:25 Albumin 4.0 gm/dL (4.2-5.5) L 11/03/18 22:25 Globulin 2.3 gm/dL 11/03/18 22:25 Albumin/Globulin Ratio 1.7 (1.0-1.8) 11/03/18 22:25 Triglycerides 57 mg/dL (<150) 11/03/18 22:25 Cholesterol 147 mg/dL (<200) 11/03/18 22:25 LDL Cholesterol Direct 88 mg/dL (75-193) 11/03/18 22:25 HDL Cholesterol 55 mg/dL (23-92) 11/03/18 22:25 TSH 1.14 uIU/ml (0.34-5.60) 11/03/18 22:25 Salicylates < 25.0 mg/L (30.0-100.0) L 11/03/18 22:25 Acetaminophen < 10.0 ug/mL (10.0-30.0) L 11/03/18 22:25 Ethyl Alcohol < 10 mg/dL (0-10) 11/03/18 22:25 RPR NONREACTIVE (NONREACTIVE) 11/03/18 22:25 - Physical Exam Vitals and I&O: Vital Signs Temp 97.7 F 11/09/18 04:51 Pulse 69 11/09/18 08:47 Resp 18 11/09/18 04:51 BP 111/67 11/09/18 08:47 Pulse Ox 96 11/09/18 04:51 Intake & Output 11/08/18 11/09/18 11/09/18 18:59 06:59 18:59 Intake Total 500 480 Balance 500 480 Intake: Oral 500 480 Other: # Voids 1 2 # Bowel Movements 1 Stool Characteristics Soft Soft Soft Brown Brown Brown Active Medications: Current Medications Acetaminophen (Tylenol) 650 mg PO Q6HR PRN PRN Reason: Pain or Fever >101 Stop: 01/03/19 00:18 Al Hydrox/Mg Hydrox/Simethicone (Maalox) 30 ml PO Q4HR PRN PRN Reason: GI DISTRESS Stop: 01/03/19 00:08 Carvedilol (Coreg) 6.25 mg PO BID [facility] Stop: 01/03/19 08:59 Last Admin: 11/09/18 08:47 Dose: 6.25 mg Cyanocobalamin (Vitamin B12) 1,000 mcg PO DAILY [facility]ENNY Stop: 01/03/19 08:59 Last Admin: 11/09/18 08:48 Dose: 1,000 mcg Docusate Sodium (Colace) 100 mg PO BID HENNY Stop: 01/03/19 08:59 Last Admin: 11/09/18 08:48 Dose: 100 mg Donepezil HCl (Aricept) 10 mg PO HS [facility] Stop: 01/05/19 20:59 Last Admin: 11/08/18 20:17 Dose: 10 mg Lorazepam (Ativan) 0.5 mg PO Q4HR PRN; Protocol PRN Reason: Anxiety Stop: 12/04/18 00:08 Last Admin: 11/09/18 09:04 Dose: 0.5 mg Memantine (Namenda) 5 mg PO DAILY [facility] Stop: 01/03/19 08:59 Last Admin: 11/09/18 08:48 Dose: 5 mg Zolpidem Tartrate (Ambien) 5 mg PO HS PRN PRN Reason: Insomnia Stop: 01/03/19 00:08 Last Admin: 11/08/18 22:21 Dose: 5 mg General: weak, demented HEENT: NC/AT, PERRLA, EOMI, thinning hair, poor dentition Neck: Supple, No JVD Lungs: CTAB Cardiovascular: RRR, Normal S1, Normal S2, with murmur Abdomen: soft, non-tender, globular, positive bowel sound Extremities: excoriation, contracture Neurological: no change, disorganized Internal Medicine Assmt/Plan - Assessment Assessment: ASSESSMENT: Hypertension, dementia, generalized weakness, dysphagia, hypercholesterolemia, and gastroesophageal reflux disease. - Plan Plan: PLAN: We are going to continue on current antihypertensive mediation and psychiatric medication for psychiatric issues. The patient will be placed on fall precaution. Psychiatry to manage the patient for all psych issues. Nutritional Asmnt/Malnutr-PDOC - Dietary Evaluation Malnutrition Findings (Please click <Entered> for more info): Nutritional Asmnt/Malnutrition Start: 11/06/18 11: 20 Text: Status: Complete Freq: Protocol: Document 11/06/18 11:20 MMULMARK (Rec: 11/06/18 11:27 MMULMARK DOHERTY- [email or web address]) Nutritional Asmnt/Malnutrition Patient General Information Nutritional Screening Moderate Risk Diagnosis Psychosis Pertinent Medical Hx/Surgical Hx hypertension, dementia, hypercholesterolemia, GERD Subjective Information Patient was admitted from nursing facility. In ariadna chair at time of visit. Tolerating current diet order without difficulty. Current Diet Order/ Nutrition Support Mechanical soft chopped, x2 portion entree with food in separate bowls Patient / S.O Not Indicated Pertinent Medications maalox, Vitamin B12, colace, Pertinent Labs WNL Nutritional Hx/Data Height 1.68 m Height (Calculated Centimeters) 167.6 Current Weight (lbs) 82.1 kg Weight (Calculated Kilograms) 82.1 Weight (Calculated Grams) 97066.2 [place] Body Weight 142 % [place] Body Weight 127 Body Mass Index (BMI) 29.2 Recent Weight Change No Weight Status Overweight GI Symptoms GI Symptoms None Last BM 2/1 c 2 Difficult in: None Food Allergies No Cultural/Ethnic/Mandaeism Belief none indicated Usual diet at home unknown Skin Integrity/Comment: [place] 20, intact Current %PO Good (75-100%) Estimated Nutritional Goals BEE in Kcals: Using Current wt Calories/Kcals/Kg 22-27 kcal/kg using CBW 82.2kg Kcals Calculated ~1977-6780 kcal/day Protein: Using Current wt Protein g/k.8-1 gm/kg Protein Calculated ~65-80 gm/day Fluid: ml ~8526-6261 ml/day Nutritional Problem 1. Problem Problem No nutrition diagnosis at this time Intervention/Recommendation Comments Continue current diet order as tolerated by patient. Expected Outcomes/Goals Expected Outcomes/Goals Oral diet >75% of meals, weight stable or trend toward IBW, nutrition related labs WNL.
[2018-11-10] MEDS: Multivitamin w/ Minerals Tab PO SCH (08:45)
--- NOTE | 2018-11-10 11:38 | Progress Notes ---
DATE: 11/08/2018 SUBJECTIVE: A 63-year-old male, agitated, that is why he came to the hospital. He is trying to leave right now, trying to elope out of the door, very confused, disoriented, impoverished thought processes, disheveled, malodorous. The patient with ongoing behavioral disturbances, somewhat aggressive, anxious, restless, mumbling to self, forgetful, concerns about his ability to function at a lower level of care. The patient is coming from [facility]. ASSESSMENT: The patient appearing distracted, impoverished, confused. PLAN: Medications were noted. We will continue to monitor. Continue Aricept and Namenda dosing. JOB# [id number]
--- NOTE | 2018-11-10 12:24 | Progress Notes ---
DATE: 11/09/2018 SUBJECTIVE: A 63-year-old male with history of agitated behavior, is trying to leave the unit, very confused, disoriented, mumbling to self, history of dementia. On [id number], the patient still can be aggressive at times, trying to leave the unit, requiring a lot of prompting, redirection. Still mumbling to self, highly impoverished. Nursing staff is noting that the patient is very confused, disoriented, only knows his name, mumbling to self, unable to have a reasonable conversation with him, disorganized, wandering, trying to push the door open. Medications were noted. ASSESSMENT: The patient is disoriented, still aggressive at times; currently on Aricept dosing, Namenda. We will continue to monitor. The patient is requiring a lot of redirection still. JOB# [id number]
--- NOTE | 2018-11-10 12:58 | Internal Medicine Prog Note ---
Internal Medicine Subjective - Subjective Patient seen and examined:: with staff, chart reviewed Patient is:: awake, verbal, interactive, in bed, confused, stares blankly Per staff patient has:: no adverse event, no episodes of fall, poor appetite, tolerating meds Internal Medicine Objective - Results Result Diagrams: 11/03/18 22:25 11/03/18 22:25 Recent Labs: Laboratory Last Values WBC 10.3 Th/cmm (4.8-10.8) 11/03/18 22:25 RBC 4.03 Mil/cmm (4.30-5.70) L 11/03/18 22:25 Hgb 13.3 gm/dL (12-16) 11/03/18 22:25 Hct 40.7 % (41.0-60) L 11/03/18 22:25 MCV 100.9 fl (80-99) H 11/03/18 22:25 MCH 32.9 pg (26.0-30.0) H 11/03/18 22:25 MCHC Differential 32.6 pg (28.0-36.0) 11/03/18 22:25 RDW 12.1 % (11.5-20.0) 11/03/18 22:25 Plt Count 200 Th/cmm (150-400) 11/03/18 22:25 MPV 7.6 fl 11/03/18 22:25 Neutrophils % 82.7 % (40.0-80.0) H 11/03/18 22:25 Lymphocytes % 11.7 % (20.0-50.0) L 11/03/18 22:25 Monocytes % 5.2 % (2.0-10.0) 11/03/18 22:25 Eosinophils % 0.2 % (0.0-5.0) 11/03/18 22:25 Basophils % 0.2 % (0.0-2.0) 11/03/18 22:25 Sodium 139 mEq/L (136-145) 11/03/18 22:25 Potassium 3.7 mEq/L (3.5-5.1) 11/03/18 22:25 Chloride 104 mEq/L (98-107) 11/03/18 22:25 Carbon Dioxide 22.3 mEq/L (21.0-31.0) 11/03/18 22:25 Anion Gap 16.4 (7.0-16.0) H 11/03/18 22:25 BUN 24 mg/dL (7-25) 11/03/18 22:25 Creatinine 0.9 mg/dL (0.7-1.3) 11/03/18 22:25 Est GFR ( Amer) > 60.0 ml/min (>90) 11/03/18 22:25 Est GFR (Non-Af Amer) > 60.0 ml/min 11/03/18 22:25 BUN/Creatinine Ratio 26.7 11/03/18 22:25 Glucose 127 mg/dL (70-105) H 11/03/18 22:25 Calcium 9.2 mg/dL (8.6-10.3) 11/03/18 22:25 Total Bilirubin 0.3 mg/dL (0.3-1.0) 11/03/18 22:25 AST 19 U/L (13-39) 11/03/18 22:25 ALT 35 U/L (7-52) 11/03/18 22:25 Alkaline Phosphatase 73 U/L (34-104) 11/03/18 22:25 Troponin I < 0.01 ng/mL (0.01-0.05) L 11/03/18 22:25 Total Protein 6.3 gm/dL (6.0-8.3) 11/03/18 22:25 Albumin 4.0 gm/dL (4.2-5.5) L 11/03/18 22:25 Globulin 2.3 gm/dL 11/03/18 22:25 Albumin/Globulin Ratio 1.7 (1.0-1.8) 11/03/18 22:25 Triglycerides 57 mg/dL (<150) 11/03/18 22:25 Cholesterol 147 mg/dL (<200) 11/03/18 22:25 LDL Cholesterol Direct 88 mg/dL (75-193) 11/03/18 22:25 HDL Cholesterol 55 mg/dL (23-92) 11/03/18 22:25 TSH 1.14 uIU/ml (0.34-5.60) 11/03/18 22:25 Salicylates < 25.0 mg/L (30.0-100.0) L 11/03/18 22:25 Acetaminophen < 10.0 ug/mL (10.0-30.0) L 11/03/18 22:25 Ethyl Alcohol < 10 mg/dL (0-10) 11/03/18 22:25 RPR NONREACTIVE (NONREACTIVE) 11/03/18 22:25 - Physical Exam Vitals and I&O: Vital Signs Temp 97.7 F 11/10/18 06:46 Pulse 78 11/10/18 08:45 Resp 19 11/10/18 06:46 BP 110/57 11/10/18 08:45 Pulse Ox 98 11/10/18 06:46 Intake & Output 11/09/18 11/10/18 11/10/18 18:59 06:59 18:59 Intake Total 480 Balance 480 Intake: Oral 480 Other: # Voids 2 Stool Characteristics Soft Soft Brown Brown Active Medications: Current Medications Acetaminophen (Tylenol) 650 mg PO Q6HR PRN PRN Reason: Pain or Fever >101 Stop: 01/03/19 00:18 Al Hydrox/Mg Hydrox/Simethicone (Maalox) 30 ml PO Q4HR PRN PRN Reason: GI DISTRESS Stop: 01/03/19 00:08 Carvedilol (Coreg) 6.25 mg PO BID HENNY Stop: 01/03/19 08:59 Last Admin: 11/10/18 08:45 Dose: 6.25 mg Cyanocobalamin (Vitamin B12) 1,000 mcg PO DAILY HENNY Stop: 01/03/19 08:59 Last Admin: 11/10/18 08:45 Dose: 1,000 mcg Docusate Sodium (Colace) 100 mg PO BID HENNY Stop: 01/03/19 08:59 Last Admin: 11/10/18 08:45 Dose: 100 mg Donepezil HCl (Aricept) 10 mg PO HS HENNY Stop: 01/05/19 20:59 Last Admin: 11/09/18 20:34 Dose: 10 mg Lorazepam (Ativan) 0.5 mg PO Q4HR PRN; Protocol PRN Reason: Anxiety Stop: 12/04/18 00:08 Last Admin: 11/09/18 20:56 Dose: 0.5 mg Memantine (Namenda) 5 mg PO DAILY HENNY Stop: 01/03/19 08:59 Last Admin: 11/10/18 08:45 Dose: 5 mg Zolpidem Tartrate (Ambien) 5 mg PO HS PRN PRN Reason: Insomnia Stop: 01/03/19 00:08 Last Admin: 11/09/18 20:34 Dose: 5 mg General: weak, demented HEENT: NC/AT, PERRLA, EOMI, thinning hair, poor dentition Neck: Supple, No JVD Lungs: CTAB Cardiovascular: RRR, Normal S1, Normal S2, with murmur Abdomen: soft, non-tender, globular, positive bowel sound Extremities: excoriation, contracture Neurological: no change, disorganized Internal Medicine Assmt/Plan - Assessment Assessment: ASSESSMENT: Hypertension, dementia, generalized weakness, dysphagia, hypercholesterolemia, and gastroesophageal reflux disease. - Plan Plan: PLAN: We are going to continue on current antihypertensive mediation and psychiatric medication for psychiatric issues. The patient will be placed on fall precaution. Psychiatry to manage the patient for all psych issues. Nutritional Asmnt/Malnutr-PDOC - Dietary Evaluation Malnutrition Findings (Please click <Entered> for more info): Nutritional Asmnt/Malnutrition Start: 11/06/18 11: 20 Text: Status: Complete Freq: Protocol: Document 11/06/18 11:20 [email or web address] (Rec: 11/06/18 11:27 [email or web address]- [email or web address]) Nutritional Asmnt/Malnutrition Patient General Information Nutritional Screening Moderate Risk Diagnosis Psychosis Pertinent Medical Hx/Surgical Hx hypertension, dementia, hypercholesterolemia, GERD Subjective Information Patient was admitted from nursing facility. In ariadna chair at time of visit. Tolerating current diet order without difficulty. Current Diet Order/ Nutrition Support Mechanical soft chopped, x2 portion entree with food in separate bowls Patient / S.O Not Indicated Pertinent Medications maalox, Vitamin B12, colace, Pertinent Labs WNL Nutritional Hx/Data Height 1.68 m Height (Calculated Centimeters) 167.6 Current Weight (lbs) 82.1 kg Weight (Calculated Kilograms) 82.1 Weight (Calculated Grams) 97373.2 [place] Body Weight 142 % [place] Body Weight 127 Body Mass Index (BMI) 29.2 Recent Weight Change No Weight Status Overweight GI Symptoms GI Symptoms None Last BM 2/ c 2 Difficult in: None Food Allergies No Cultural/Ethnic/Caodaism Belief none indicated Usual diet at home unknown Skin Integrity/Comment: [place] 20, intact Current %PO Good (75-100%) Estimated Nutritional Goals BEE in Kcals: Using Current wt Calories/Kcals/Kg 22-27 kcal/kg using CBW 82.2kg Kcals Calculated ~2173-9392 kcal/day Protein: Using Current wt Protein g/k.8-1 gm/kg Protein Calculated ~65-80 gm/day Fluid: ml ~4276-5321 ml/day Nutritional Problem 1. Problem Problem No nutrition diagnosis at this time Intervention/Recommendation Comments Continue current diet order as tolerated by patient. Expected Outcomes/Goals Expected Outcomes/Goals Oral diet >75% of meals, weight stable or trend toward IBW, nutrition related labs WNL.
--- NOTE | 2018-11-10 23:05 | Progress Notes ---
DATE: 11/10/2018 SUBJECTIVE: The patient calmer, likely approaching his baseline, very confused, disoriented. No longer aggressive. Following unit rules and directions. Staff noting he is significantly calmer, not causing any problems, following directions, less impulsive, less unpredictable, just very confused. ASSESSMENT: The patient is confused, likely approaching his baseline. PLAN: We will monitor for further 24 hours while preparing for disposition. [facility]# [id number]
[2018-11-11] MEDS: Multivitamin w/ Minerals Tab PO SCH (08:05)
--- NOTE | 2018-11-11 12:55 | Internal Medicine Prog Note ---
Internal Medicine Subjective - Subjective Patient seen and examined:: with staff, chart reviewed Patient is:: awake, verbal, interactive, in bed, confused, stares blankly Per staff patient has:: no adverse event, no episodes of fall, poor appetite, tolerating meds Internal Medicine Objective - Results Result Diagrams: 11/03/18 22:25 11/03/18 22:25 Recent Labs: Laboratory Last Values WBC 10.3 Th/cmm (4.8-10.8) 11/03/18 22:25 RBC 4.03 Mil/cmm (4.30-5.70) L 11/03/18 22:25 Hgb 13.3 gm/dL (12-16) 11/03/18 22:25 Hct 40.7 % (41.0-60) L 11/03/18 22:25 MCV 100.9 fl (80-99) H 11/03/18 22:25 MCH 32.9 pg (26.0-30.0) H 11/03/18 22:25 MCHC Differential 32.6 pg (28.0-36.0) 11/03/18 22:25 RDW 12.1 % (11.5-20.0) 11/03/18 22:25 Plt Count 200 Th/cmm (150-400) 11/03/18 22:25 MPV 7.6 fl 11/03/18 22:25 Neutrophils % 82.7 % (40.0-80.0) H 11/03/18 22:25 Lymphocytes % 11.7 % (20.0-50.0) L 11/03/18 22:25 Monocytes % 5.2 % (2.0-10.0) 11/03/18 22:25 Eosinophils % 0.2 % (0.0-5.0) 11/03/18 22:25 Basophils % 0.2 % (0.0-2.0) 11/03/18 22:25 Sodium 139 mEq/L (136-145) 11/03/18 22:25 Potassium 3.7 mEq/L (3.5-5.1) 11/03/18 22:25 Chloride 104 mEq/L (98-107) 11/03/18 22:25 Carbon Dioxide 22.3 mEq/L (21.0-31.0) 11/03/18 22:25 Anion Gap 16.4 (7.0-16.0) H 11/03/18 22:25 BUN 24 mg/dL (7-25) 11/03/18 22:25 Creatinine 0.9 mg/dL (0.7-1.3) 11/03/18 22:25 Est GFR ( Amer) > 60.0 ml/min (>90) 11/03/18 22:25 Est GFR (Non-Af Amer) > 60.0 ml/min 11/03/18 22:25 BUN/Creatinine Ratio 26.7 11/03/18 22:25 Glucose 127 mg/dL (70-105) H 11/03/18 22:25 Calcium 9.2 mg/dL (8.6-10.3) 11/03/18 22:25 Total Bilirubin 0.3 mg/dL (0.3-1.0) 11/03/18 22:25 AST 19 U/L (13-39) 11/03/18 22:25 ALT 35 U/L (7-52) 11/03/18 22:25 Alkaline Phosphatase 73 U/L (34-104) 11/03/18 22:25 Troponin I < 0.01 ng/mL (0.01-0.05) L 11/03/18 22:25 Total Protein 6.3 gm/dL (6.0-8.3) 11/03/18 22:25 Albumin 4.0 gm/dL (4.2-5.5) L 11/03/18 22:25 Globulin 2.3 gm/dL 11/03/18 22:25 Albumin/Globulin Ratio 1.7 (1.0-1.8) 11/03/18 22:25 Triglycerides 57 mg/dL (<150) 11/03/18 22:25 Cholesterol 147 mg/dL (<200) 11/03/18 22:25 LDL Cholesterol Direct 88 mg/dL (75-193) 11/03/18 22:25 HDL Cholesterol 55 mg/dL (23-92) 11/03/18 22:25 TSH 1.14 uIU/ml (0.34-5.60) 11/03/18 22:25 Salicylates < 25.0 mg/L (30.0-100.0) L 11/03/18 22:25 Acetaminophen < 10.0 ug/mL (10.0-30.0) L 11/03/18 22:25 Ethyl Alcohol < 10 mg/dL (0-10) 11/03/18 22:25 RPR NONREACTIVE (NONREACTIVE) 11/03/18 22:25 - Physical Exam Vitals and I&O: Vital Signs Temp 97.6 F 11/11/18 10:03 Pulse 66 11/11/18 10:03 Resp 18 11/11/18 10:03 BP 126/68 11/11/18 10:03 Pulse Ox 96 11/11/18 10:03 Intake & Output 11/10/18 11/11/18 11/11/18 18:59 06:59 18:59 Intake Total 360 Balance 360 Intake: Oral 360 Other: # Voids 2 Stool Characteristics Soft Brown Active Medications: Current Medications Acetaminophen (Tylenol) 650 mg PO Q6HR PRN PRN Reason: Pain or Fever >101 Stop: 01/03/19 00:18 Al Hydrox/Mg Hydrox/Simethicone (Maalox) 30 ml PO Q4HR PRN PRN Reason: GI DISTRESS Stop: 01/03/19 00:08 Carvedilol (Coreg) 6.25 mg PO BID HENNY Stop: 01/03/19 08:59 Last Admin: 11/11/18 08:06 Dose: 6.25 mg Cyanocobalamin (Vitamin B12) 1,000 mcg PO DAILY HENNY Stop: 01/03/19 08:59 Last Admin: 11/11/18 08:06 Dose: 1,000 mcg Docusate Sodium (Colace) 100 mg PO BID HENNY Stop: 01/03/19 08:59 Last Admin: 11/11/18 08:06 Dose: 100 mg Donepezil HCl (Aricept) 10 mg PO HS HENNY Stop: 01/05/19 20:59 Last Admin: 11/10/18 21:00 Dose: 10 mg Lorazepam (Ativan) 0.5 mg PO Q4HR PRN; Protocol PRN Reason: Anxiety Stop: 12/04/18 00:08 Last Admin: 11/11/18 08:05 Dose: 0.5 mg Memantine (Namenda) 5 mg PO DAILY HENNY Stop: 01/03/19 08:59 Last Admin: 11/11/18 08:05 Dose: 5 mg Zolpidem Tartrate (Ambien) 5 mg PO HS PRN PRN Reason: Insomnia Stop: 01/03/19 00:08 Last Admin: 11/10/18 21:29 Dose: 5 mg General: weak, demented HEENT: NC/AT, PERRLA, EOMI, thinning hair, poor dentition Neck: Supple, No JVD Lungs: CTAB Cardiovascular: RRR, Normal S1, Normal S2, with murmur Abdomen: soft, non-tender, globular, positive bowel sound Extremities: excoriation, contracture Neurological: no change, disorganized Internal Medicine Assmt/Plan - Assessment Assessment: ASSESSMENT: Hypertension, dementia, generalized weakness, dysphagia, hypercholesterolemia, and gastroesophageal reflux disease. - Plan Plan: PLAN: We are going to continue on current antihypertensive mediation and psychiatric medication for psychiatric issues. The patient will be placed on fall precaution. Psychiatry to manage the patient for all psych issues. Nutritional Asmnt/Malnutr-PDOC - Dietary Evaluation Malnutrition Findings (Please click <Entered> for more info): Nutritional Asmnt/Malnutrition Start: 11/06/18 11: 20 Text: Status: Complete Freq: Protocol: Document 11/06/18 11:20 KAILASH (Rec: 11/06/18 11:27 [email or web address]- [email or web address]) Nutritional Asmnt/Malnutrition Patient General Information Nutritional Screening Moderate Risk Diagnosis Psychosis Pertinent Medical Hx/Surgical Hx hypertension, dementia, hypercholesterolemia, GERD Subjective Information Patient was admitted from nursing facility. In ariadna chair at time of visit. Tolerating current diet order without difficulty. Current Diet Order/ Nutrition Support Mechanical soft chopped, x2 portion entree with food in separate bowls Patient / S.O Not Indicated Pertinent Medications maalox, Vitamin B12, colace, Pertinent Labs WNL Nutritional Hx/Data Height 1.68 m Height (Calculated Centimeters) 167.6 Current Weight (lbs) 82.1 kg Weight (Calculated Kilograms) 82.1 Weight (Calculated Grams) 08776.2 [place] Body Weight 142 % [place] Body Weight 127 Body Mass Index (BMI) 29.2 Recent Weight Change No Weight Status Overweight GI Symptoms GI Symptoms None Last BM 2/ c 2 Difficult in: None Food Allergies No Cultural/Ethnic/[place]ism Belief none indicated Usual diet at home unknown Skin Integrity/Comment: [place] 20, intact Current %PO Good (75-100%) Estimated Nutritional Goals BEE in Kcals: Using Current wt Calories/Kcals/Kg 22-27 kcal/kg using CBW 82.2kg Kcals Calculated ~0548-9072 kcal/day Protein: Using Current wt Protein g/k.8-1 gm/kg Protein Calculated ~65-80 gm/day Fluid: ml ~2397-1872 ml/day Nutritional Problem 1. Problem Problem No nutrition diagnosis at this time Intervention/Recommendation Comments Continue current diet order as tolerated by patient. Expected Outcomes/Goals Expected Outcomes/Goals Oral diet >75% of meals, weight stable or trend toward IBW, nutrition related labs WNL.
--- NOTE | 2018-11-11 23:29 | Discharge Summary ---
DATE OF DISCHARGE: 11/11/2018 HISTORY OF PRESENT ILLNESS: A 63-year-old male, agitated, hostile, aggressive, very confused, disoriented, AO to name only, mumbling to self. Concerns for dementia, wandering around, trying to leave, wandering, mumbling something, unintelligible. PAST PSYCHIATRIC HISTORY: Dementia. SOCIAL HISTORY: Noted. MENTAL STATUS EXAMINATION: Please see full psych eval for details. PROVISIONAL DIAGNOSIS: Dementia, rule out bipolar. Also, mood, unspecified. MEDICAL: Please see full H and P. HOSPITAL COURSE: After initial assessment, the patient was started on medications to calm him down. Over the course of treatment, mood improved. He was calmer, more cooperative on Namenda and Aricept. No longer aggressive, no violent behaviors. Following rules and directions. No lashing out at staff, no outbursts. CONDITION UPON DISCHARGE: Improved, allowing ADLs. Mood is "okay." Affect flat. Thought processes were confused, essentially AO to name only, does respond to his name. No suicidal gestures. No overt delusions, sometimes mumbling to self. Insight and judgment diminished. PROVISIONAL DIAGNOSIS: Dementia. MEDICAL: Please see full H and P including dementia with behavioral disturbances; anxiety, unspecified. PROGNOSIS: The patient follows up with outpatient mental health services and remains compliant with treatment. Prognosis will improve, otherwise guarded. [facility]# [id number]
== END 2018-11-11 18:50 | DRG 884 ==
LOC: ER 22:08 → GERO2 23:15
PROVIDERS: ADMIT Psychiatry & Neurology Psychiatry; ATTEND Psychiatry & Neurology Psychiatry
DX: F03.91 Unspecified dementia, unspecified severity, with behavioral disturbance (principal); F31.9 Bipolar disorder, unspecified; I10 Essential (primary) hypertension; E78.5 Hyperlipidemia, unspecified; F29 Unspecified psychosis not due to a substance or known physiological condition; E78.00 Pure hypercholesterolemia, unspecified; F41.9 Anxiety disorder, unspecified; R13.10 Dysphagia, unspecified; K21.9 Gastro-esophageal reflux disease without esophagitis; Z82.49 Family history of ischemic heart disease and other diseases of the circulatory system; Z87.11 Personal history of peptic ulcer disease; Z88.1 Allergy status to other antibiotic agents
CPT/HCPCS: 36415-UA; 80053-TC; 80061-TC; 80320-TC; 80329-TC; 83036-90; 84443-TC; 84484-TC; 85025-TC; 86592-TC; J1200; J1630; J2060; Z7610